=== PATIENT | male | born 1955 ===

== ENCOUNTER 2024-10-24 14:23 | Emergency (ER) | payer MEDICARE, SELFPAY ==
[2024-10-24 14:25] VITALS: BP 145/79; PULSE 93; RESP 16; TEMP 37; O2SAT 95
--- NOTE | 2024-10-24 15:16 | W.ED.GENAD ---
Discharge Plan Disposition Patient Disposition: Home Condition: Good Discharge Details Clinical Impression: Dry gangrene ED Provider: Leda Trejo Home Meds and New Rx's Prescriptions: New menthol 1.25 % cream 1 applic topical DAILY Qty: 1 0RF Continued gabapentin 100 mg capsule 100 mg PO BID Patient Comments: not on med list pt states recently prescribed nifedipine 30 mg tablet extended release 10 mg PO TID paliperidone [Invega] 6 mg tablet extended release 24hr 6 mg PO DAILY Patient Comments: not on med list pt reports new Discharge Instructions Instructions: Gangrene (DC) Additional Instructions: Tylenol and ibuprofen over the counter as needed for pain; follow the directions on the bottle. You can also use menthol cream; a prescription was sent to the pharmacy. If this causes skin irritation, please stop using. Keep your scheduled appointment with surgery. If you decided to have an amputation, will need referral to another hospital ([facility], [facility] [place], or other- surgery or your PCP can assist with this). Call your primary care doctor in the morning to schedule an appointment within one week to followup on your visit here. At that visit please discuss your blood pressure which is high here today. Return to the emergency department for new or worsening symptoms including fever, severe pain, discharge from your thumb, or if you have any other concerns. HPI General Mode of arrival: ambulatory. Date/Time Provider Initiated Documentation: 10/24/24 14:24. Limitations to Documentation: no limitations. Information obtained by: patient and old records reviewed. HPI Narrative: 69yo M with hx schizophernia, Raynaud's, presenting with worsening pain to right thumb. Reports that in July he was diagnosed with frostbite at [facility], referred to [place] for further care. At [place] he was followed for dry gangrene and offered amputation but chose to decline. Was referred to [facility] but has not seen them yet. Yesterday he began to have increasing pain at the base of the gangrenous area at the tip of his right thumb with some increased swelling. No discharge. Pain is sharp and radiates down his thumb; has been improved with gabapentin and topical menthol. He is otherwise in his usual state of health with no fevers, chills,rash, nausea, vommtiing, lightheadedness, or other concerns. . Related Data Home Medications ?Medication ?Instructions ?Recorded ?Confirmed gabapentin 100 mg capsule 100 mg PO BID 10/24/24 10/24/24 menthol 1.25 % topical cream 1 applic topical DAILY #1 g 10/24/24 nifedipine 30 mg tablet,extended 10 mg PO TID 10/24/24 10/24/24 release paliperidone 6 mg tablet,extended 6 mg PO DAILY 10/24/24 10/24/24 release 24 hr (Invega) Previous Rx's ?Medication ?Instructions ?Recorded menthol 1.25 % topical cream 1 applic topical DAILY #1 g 10/24/24 Allergies Allergy/AdvReac Type Severity Reaction Status Date / Time aspirin AdvReac Intermediate Unknown Verified 10/24/24 14:38 acetaminophen (From Tylenol) AdvReac Mild nausea Verified 10/24/24 14:38 General Stated Complaint: RashLesion KALYN: 3 Review of Systems Narrative: see HPI Exam Narrative Exam Narrative: General: Alert, well appearing, well nourished, in no acute distress. Head: Normocephalic, atraumatic Neck: Trachea midline, ?Neck supple. Cardiac: ?RRR Resp: No respiratory distress. Speaking in full sentences. Abd: ?Non-distended Extremities: ?Distal phalanx of right thumb with dry gangrene, no discharge. Base of gangrenous area every so slightly erythematous with slight swelling; normal temperature. Normal sensation and strength proximal to gangrenous area. Good radial pulse. Neurologic: GCS 15. ? Moves all extremities freely against gravity Course Vital Signs Vital signs: Vital Signs Temperature 37.0 C 10/24/24 14:25 Pulse 93 H 10/24/24 14:25 Respiratory Rate 16 10/24/24 14:25 Blood Pressure 145/79 H 10/24/24 14:25 Pulse Oximetry 95 10/24/24 14:25 Temperature 37.0 C 10/24/24 14:25 Temperature Source Oral 10/24/24 14:25 Pulse 93 H 10/24/24 14:25 Respiratory Rate 16 10/24/24 14:25 Blood Pressure 145/79 H 10/24/24 14:25 Blood Pressure Position Sitting 10/24/24 14:25 Pulse Oximetry 95 10/24/24 14:25 Pain Level 3 10/24/24 14:25 Medical Decision Making 69yo M with hx schizophernia, Raynaud's, here with worsening pain to right thumb with existing dry gangrene. In July diagnosed with frostbite at [facility], referred to [place]; at [place] he was followed for dry gangrene and offered amputation but chose to decline, was then referred to [facility] but has not seen them yet. Yesterday noted increasing pain. Systemically well. Vital signs reassuring on arrival. On exam he has dry gangrene without overt signs of infection, some mild erythema and swelling at base of gangerenous area. Dr. Oates from [facility] surgery evaluated patient; agree no indication for antibiotics or urgent intervention. Discussed with patient who continues to decline amputation. He requests menthol cream as this has helped with the pain; prescription sent. Discharged home; discharge instructions and return precautions were reviewed with patient who verbalized understanding. All questions were answered and he is in full agreement with the plan. [facility] All Active Problems (Updated 10/24/24 @ 15:49 by Leda Trejo MD) Dry gangrene (Acute) Social History Smoking/Tobacco Use Status: Current every day Tobacco Type: pipe Smoking risk assessment performed?: Yes Alcohol Intake: never Substance use type: does not use Housing: other Do you feel safe at home: Yes Do you feel safe in your relationship?: Yes
[2024-10-24 15:58] VITALS: BP 180/89; PULSE 87; TEMP 37.1; O2SAT 97
--- NOTE | 2024-10-24 16:56 | W.SURGCON ---
Date of service: 10/24/24 Time of Service: 16:57 Assessment and Plan Assessment and plan (1) Gangrene of thumb: Status: Acute Assessment and plan: Patient today requesting debridement of site of dry gangrene on his thumb. Recommend the patient follow-up with hand surgeon. He indicates that he will soon be moving to [place]. He should be able to find a hand specialist in [place]. The site does not appear actively infected, and has not changed significantly for the past few months. (2) Schizophrenia: Status: Chronic Assessment and plan: Patient does have schizophrenia, this appears well-controlled. He does perseverate on some topics, but is awake and alert, and appears to have decision-making capacity. History of Present Illness History of Present Illness Chief Complaint: Dry gangrene of right thumb Narrative: Mr. Salcido is a 69-year-old male, he has a history of schizophrenia, during the winter here in [place] he sustained a frostbite injury to his right hand, reports some significant scaling and peeling of the skin. The right thumb developed an area of dry gangrene, which has progressed for several months. Occasionally patient will cleanse this with an antibacterial soap. He presents today for possible amputation of the distal portion of his right thumb versus debridement. He indicates that he has seen a hand surgeon for this, also has seen what sounds like a general surgeon out [facility] in [place]. Review of Systems All systems reviewed & are unremarkable except as noted in HPI and below PFSH All Active Problems (Updated 10/24/24 @ 17:04 by Wilfrid Oates MD) Schizophrenia (Chronic) Gangrene of thumb (Acute) Dry gangrene (Acute) Social History Smoking/Tobacco Use Status: Current every day Tobacco Type: pipe Smoking risk assessment performed?: Yes Alcohol Intake: never Substance use type: does not use Housing: other Do you feel safe at home: Yes Do you feel safe in your relationship?: Yes Exam Narrative Exam Narrative: Patient is an adult male, he is talkative. Occasionally requires some redirecting in the conversation. He is awake and alert, standing at the bedside upon entering the room. His vital signs show some moderate hypertension. Examination of his right thumb and hand, there is some spasticity of the thenar musculature and some atrophy. He has dry gangrene of the DIP joint in tip of his thumb, this is black with sharp demarcation to pink skin below. The dry gangrene is firmly affixed. There is no palpable purulent material at the site does not have any foul odor. There is no palpable edema of the proximal portion of the thumb nor the hand. Results Last Vital Signs Temp 37.1 C 10/24/24 15:58 Pulse 87 10/24/24 15:58 Resp 16 10/24/24 14:25 BP 180/89 H 10/24/24 15:58 Pulse Ox 97 10/24/24 15:58
== END 2024-10-24 16:13 | disposition home or self-care (01) ==
LOC: ER 16:13
PROVIDERS: Emergency Provider Student in an Organized Health Care Education/Training Program
DX: I96 Gangrene, not elsewhere classified (principal); F20.9 Schizophrenia, unspecified; F17.290 Nicotine dependence, other tobacco product, uncomplicated
CPT/HCPCS: 99283; 99284